=== PATIENT | female | born 1960 | race Asian ===

== ENCOUNTER 2021-11-22 17:35 | Emergency (ER) | payer OTHER ==
[~2021-11-22] VITALS: Ht 154.9 cm; Wt 45.0 kg
[~2021-11-22 17:35] MED LIST: CIPR-278 PO
[2021-11-22 18:16] LABS: GLUCOSE,POINT OF CARE 238 MG/DL (70-110)
[2021-11-22] MEDS ORDERED: BACITRACIN 0.9 GM PACKET OINTMENT TP ONE (18:30)
[2021-11-22] MEDS ORDERED: METHOCARBAMOL 500 MG TABLET PO ONE (18:30)
[2021-11-22] MEDS ORDERED: TraMADol HCL 50 MG TABLET PO ONE (18:30)
[2021-11-22] MEDS ORDERED: KETOROLAC TROMETHAMINE 10 MG TABLET PO ONE (18:30)
[2021-11-22] MEDS ORDERED: POVIDONE-IODINE 10% 120 ML SOLUTION TP ONE (18:30)
[2021-11-22 20:57] VITALS: BP 144/85
== END 2021-11-22 20:53 | disposition home or self-care (01) ==
LOC: EMS 17:38
DX: S92.412A Displaced fracture of proximal phalanx of left great toe, initial encounter for closed fracture (principal); S80.212A Abrasion, left knee, initial encounter; S80.211A Abrasion, right knee, initial encounter; I10 Essential (primary) hypertension; E11.9 Type 2 diabetes mellitus without complications; W18.09XA Striking against other object with subsequent fall, initial encounter; Y93.01 Activity, walking, marching and hiking; Y92.488 Other paved roadways as the place of occurrence of the external cause; Y99.8 Other external cause status; Z87.442 Personal history of urinary calculi; Z88.1 Allergy status to other antibiotic agents
CPT/HCPCS: 82962; 99284